=== PATIENT | male | born 1985 | race African-American/Black ===

== ENCOUNTER 2024-08-17 23:08 | Emergency (ER) | payer MEDICAID ==
[~2024-08-17] VITALS: Ht 170.2 cm; Wt 77.0 kg
[2024-08-17 23:26] VITALS: BP 111/77; PULSE 83; RESP 18; TEMP 37.2; O2SAT 100
[2024-08-18] MEDS: KETOROLAC 30MG/ML VIAL IM ONE (00:11)
[2024-08-18] MEDS ORDERED: AMOX-494 MT (02:58)
[2024-08-18] MEDS ORDERED: IBUP-2029 MT (02:58)
== END 2024-08-18 00:46 | disposition home or self-care (01) ==
LOC: ER 23:08
DX: J02.0 Streptococcal pharyngitis (principal)
CPT/HCPCS: 99283; 87430; 96372; J1885

== ENCOUNTER 2024-08-27 01:46 | Emergency (ER) | payer MEDICAID, OTHER ==
[~2024-08-27] VITALS: Ht 175.3 cm; Wt 64.0 kg
[~2024-08-27 01:46] MED LIST: AMOX-494 MT; IBUP-2029 MT
[2024-08-27 02:26] VITALS: O2SAT 99
[2024-08-27] MEDS ORDERED: ISOP30DR11 EACH EAR (02:33)
[2024-08-27] MEDS ORDERED: OFLO5DRO4 EACH EAR (02:34)
[2024-08-27 03:10] VITALS: BP 132/82; PULSE 76; RESP 18; TEMP 36.8; O2SAT 98
== END 2024-08-27 03:13 | disposition home or self-care (01) ==
LOC: ER 01:46
DX: H61.22 Impacted cerumen, left ear (principal); H60.8X2 Other otitis externa, left ear
CPT/HCPCS: 69210; 99283; 99284

== ENCOUNTER 2025-05-25 20:59 | Emergency (ER) | payer MEDICAID ==
[~2025-05-25] VITALS: Ht 167.6 cm; Wt 81.0 kg
[~2025-05-25 20:59] MED LIST changes: +IBUP-1455 MT; -IBUP-2029 MT; +ISOP30DR11 EACH EAR; +OFLO5DRO4 EACH EAR
[2025-05-25 21:16] VITALS: O2SAT 99
[2025-05-26] MEDS: KETOROLAC 30MG/ML VIAL IM ONE (00:44)
[2025-05-26] MEDS: LIDOCAINE 5% PATCH TOP STA (00:44)
[2025-05-26] MEDS ORDERED: LIDO700A30 TP (00:47)
[2025-05-26] MEDS ORDERED: KETO10TA2 MT (00:47)
[2025-05-26 00:57] VITALS: BP 146/91; PULSE 67; RESP 18; TEMP 36.6; O2SAT 99
== END 2025-05-26 00:58 | disposition home or self-care (01) ==
LOC: ER 20:59
DX: M25.512 Pain in left shoulder (principal); R53.1 Weakness
CPT/HCPCS: 99283; 96372; J1885